=== PATIENT | female | born 1995 | race Caucasian/White ===

== ENCOUNTER 2021-05-26 16:46 | Emergency (ER) | payer MEDICARE, MEDICAID, SELFPAY ==
--- NOTE | 2021-05-26 16:45 | RT.EKG_ITS ---
APPROVED REPORT Exam: Resting ECG Reason for Exam: dizzy Patient Location: E HR:73 bpm ECG Measurements Heart Rate 73 AXIS VA 172 P 52 QRSd 82 QRS 24 QT 383 T 27 QTc 424 Conclusion Sinus rhythm...normal P axis, V-rate 60- 99
[2021-05-26 16:48] VITALS: BP 131/61; PULSE 80; RESP 16; TEMP 36.7; O2SAT 98
[2021-05-26 17:04] VITALS: BP 121/57; PULSE 76; PULSE 89; RESP 19; O2SAT 98
[2021-05-26 17:05] VITALS: PULSE 96; RESP 18; O2SAT 98
[2021-05-26 17:10] VITALS: PULSE 82; RESP 15; O2SAT 100
[2021-05-26 17:20] VITALS: PULSE 85; RESP 18; O2SAT 99
[2021-05-26 17:28] LABS: Abs Immature Grans 0.03 10^3/uL (0.0-0.06); Absolute Basophil Count 0.01 10^3/uL (0.0-0.2); Absolute Lymphocyte Count 3.14 10^3/uL (1.2-3.4); Absolute Neutrophil Count 7.45 10^3/uL (1.2-6.7); Basophils % 0.1; HCT 43.1 % (36.0-46.0); HGB 13.7 g/dL (11.2-15.7); Immature Grans % 0.3; Lymphocytes % 28.1; MCHC 31.8 % (32.0-36.0); MCV 88.1 fL (80-95); MPV 10.7 fL (8.0-11.0); Monocytes % 4.7; Neutrophils % 66.8; Nucleated RBC 0 %; Platelet Count 344 10^3/uL (130-400); RBC 4.89 10^6/uL (3.93-5.22); RDW 12.3 % (11.7-14.6); RDW-SD 39.8 fL; WBC 11.16 10^3/uL (4.4-10.8)
[2021-05-26 17:30] VITALS: PULSE 89; RESP 21; O2SAT 98
[2021-05-26 17:30] LABS: Absolute Monocyte Count 0.52 10^3/uL (0.1-0.8)
[2021-05-26 17:37] LABS: ALT 24 U/L (14-59); AST 9 U/L (15-37); Alkaline Phosphatase 83 U/L (46-116); Anion Gap 8.4 mmol/L (3-11); BUN 11 mg/dL (7-18); Bilirubin, Total 0.3 mg/dL (0.2-1.0); CO2 25.6 mmol/L (21.0-32.0); CREATININE 1.1 mg/dL (0.55-1.02); Calcium 9.1 mg/dL (8.5-10.1); Chloride 106 mmol/L (98-107); Glucose 127 mg/dL (74-106); Lithium 0.3 mmol/l (0.6-1.2); Magnesium 2.1 mg/dL (1.8-2.4); Potassium 3.6 mmol/L (3.5-5.1); Sodium 140 mmol/L (136-145); Total Protein 7.8 g/dL (6.4-8.2); Troponin I < 50 ng/L (<or=60)
--- NOTE | 2021-05-26 17:38 | ED.GENADUL_ITS ---
Discharge Plan Disposition Patient Disposition: HOME Condition: Stable Discharge Details Clinical Impression: Acute vomiting, Dehydration Primary Care Provider: Natasha Deal ED Provider: Terry Ledesma Home Meds and New Rx's Prescriptions: Continued aripiprazole [Abilify] 15 MG tablet 15 mg PO DAILY 0RF olanzapine 10 mg Tablet 10 mg PO PRN PRN0RF lithium carbonate 450 mg Tablet Extended Release 450 mg PO BID 0RF gabapentin 300 mg Tablet 600 mg PO DAILY 0RF Discontinued Pee Pill PO DAILY 0RF Discharge Instructions Instructions: Dehydration (ED) Additional Instructions: Please take your lithium as prescribed. Please drink plenty of fluids to stay hydrated. Please contact your primary care physician to arrange follow-up. Return to the ER immediately for any worsening or new concerning symptoms. Discharge Data Discharge Date/Time-TO BE ENTERED AT DEPARTURE: 05/26/21 19:40 Medical Decision Making 25-year-old female here generally not feeling well for the past week, vomited yesterday, seen by urgent care with concern for lithium toxicity versus dehydration. Patient has had some abnormal suicidal thoughts which she acknowledges are atypical. She has not currently suicidal. Labs reviewed and nondiagnostic. Normal electrolytes. No signs of UTI. [place] level is subtherapeutic at 0.3. EKG was reviewed interpreted by me: Sinus rhythm 73 bpm, nondiagnostic. Patient was given IV fluid bolus and is tolerating oral fluids. Plan will be for discharge with follow-up with you. I encouraged her to take her lithium described. Discharge instructions were discussed with her mother who are in agreement. They were encouraged to return immediately for any worsening or new concerning symptoms. HPI General Mode of arrival: ambulatory . Date/Time Provider Initiated Documentation: 05/26/21 16:49 . Limitations to Documentation: no limitations . Information obtained by: patient . HPI Narrative: 25-year-old female with history of mood disorder, on lithium, presents with chief complaint of generally not feeling well for the past 1 week. Patient notes she has had fatigue and general malaise over the past week. Yesterday she had nausea and vomited 3 times. Symptoms moderate with no modifiers. [facility] and they advised her to go to the emergency department with concern for dehydration and lithium toxicity. Patient knows she has been taking her lithium prescribed. She does state that her mood has been off recently and she has had some atypical thoughts of suicidality. She does not currently suicidal and does feel safe here. Patient was recently treated with fluconazole for vaginal yeast infection about 1 week ago. Symptoms have resolved. Related Data Home Medications Medication Instructions Recorded Confirmed aripiprazole 15 mg tablet (Abilify) 15 mg PO DAILY 10/17/16 10/17/16 gabapentin 300 mg tablet 600 mg PO DAILY 05/26/21 05/26/21 lithium carbonate 450 mg 450 mg PO BID 05/26/21 05/26/21 tablet,extended release olanzapine 10 mg tablet 10 mg PO PRN PRN 05/26/21 05/26/21 Allergies Allergy/AdvReac Type Severity Reaction Status Date / Time risperidone [From Risperdal] Allergy Intermediate Unverified 05/26/21 16:54 haloperidol [From Haldol] AdvReac Unverified 05/26/21 16:54 General Stated Complaint: GenMedical LOY: 3 PFSH All Active Problems (Updated 05/26/21 @ 19:26 by Terry Ledesma MD) Acute vomiting (Acute) Dehydration (Acute) Social History Smoking/Tobacco Use Status: Never Smoking risk assessment performed?: Yes Drug use: Never Substance use type: does not use Do you feel safe at home: Yes Do you feel safe in your relationship?: Yes Exam Const General: cooperative and no acute distress HENMT Head: normocephalic Mouth: mucous membranes dry Eyes Conjunctivae: normal conjunctivae Sclera: normal sclerae EOM: EOM intact bilaterally Neck Neck: trachea midline and supple Resp Auscultation: clear to auscultation bilaterally, no rales, no rhonchi and no wheezes Cardio Rate: regular rate and not tachycardic Rhythm: regular rhythm GI Palpation: soft, not firm, no guarding, no masses, not rigid and nontender Skin General skin exam: no rashes or lesions noted Neuro General: patient alert, patient awake and tone normal Extrem General: no edema Psych Appearance: grossly normal Mental Status: mental status grossly normal Speech and Movement: speech and movement normal Attitude: cooperative Thought Content: suicidality Course Vital Signs Vital signs: Vital Signs Temperature 36.7 C 05/26/21 16:48 Pulse 80 05/26/21 16:48 Respiratory Rate 16 05/26/21 16:48 Blood Pressure 131/61 05/26/21 16:48 Pulse Oximetry 98 05/26/21 16:48 Temperature 36.7 C 05/26/21 16:48 Temperature Source Skin 05/26/21 16:48 Pulse 76 05/26/21 17:04 Pulse 82 05/26/21 17:10 Respiratory Rate 15 05/26/21 17:10 Respiratory Effort Non-Labored 05/26/21 17:01 Respiratory Depth Normal 05/26/21 17:01 Respiratory Pattern Normal 05/26/21 17:01 Blood Pressure 121/57 L 05/26/21 17:04 Blood Pressure Mean 63 05/26/21 17:04 Blood Pressure Position Sitting 05/26/21 16:48 Pulse Oximetry 100 05/26/21 17:10 Oxygen Delivery Method Room Air 05/26/21 16:48 Oxygen Flow Rate 0 05/26/21 16:48 Pain Level 7 05/26/21 16:48 Comment 05/26/21 16:48 Lab/Test Results Lab/Test Results: Laboratory Tests Range/Units 05/26/21 17:15 WBC (4.4-10.8) 10^3/uL 11.16 H RBC (3.93-5.22) 10^6/uL 4.89 Hgb (11.2-15.7) g/dL 13.7 Hct (36.0-46.0) % 43.1 MCV (80-95) fL 88.1 MCH (27.0-33.0) pg 28.0 MCHC (32.0-36.0) % 31.8 L RDW (11.7-14.6) % 12.3 Plt Count (130-400) 10^3/uL 344 MPV (8.0-11.0) fL 10.7 Immature Gran % 0.3 Neutrophils % 66.8 Lymphocytes % 28.1 Monocytes % 4.7 Eosinophils % 0.0 Basophils % 0.1 Nucleated RBC % % 0 Absolute Neutrophils (1.2-6.7) 10^3/uL 7.45 H Absolute Lymphocytes (1.2-3.4) 10^3/uL 3.14 Absolute Monocytes (0.1-0.8) 10^3/uL 0.52 Absolute Eosinophils (0.0-0.7) 10^3/uL 0.00 Absolute Basophils (0.0-0.2) 10^3/uL 0.01
[2021-05-26 18:09] LABS: Bilirubin Negative (Negative); Blood Negative (Negative); Clarity Clear (Clear); Glucose Negative (Negative); Ketones Negative (Negative); Leukocyte Esterase Small (Negative); Nitrite Negative (Negative); Specific Gravity 1.015 (1.005-1.025); Urobilinogen 0.2 EU/dL (Up TO 0.2)
[2021-05-26 18:21] LABS: TSH (W/Ref FT4) 1.22 uIU/mL (0.36-3.74)
[2021-05-26 18:37] LABS: Bacteria Negative HPF (Negative); C & S Indicated? No; Casts Negative LPF (Negative); Crystals Many Amorphous HPF (Negative); Epithelial Cells Many HPF (Negative); Mucus Negative (Negative); Other Cells Negative (Negative); RBC Negative HPF (0-2); WBC Negative HPF (0-5)
== END 2021-05-26 19:40 | disposition home or self-care (01) ==
PROVIDERS: Emergency Provider Student in an Organized Health Care Education/Training Program; PCP Naturopath
DX: R11.10 Vomiting, unspecified (principal); E86.0 Dehydration; R42 Dizziness and giddiness; Z79.899 Other long term (current) drug therapy
CPT/HCPCS: 80053; 81025; 93005; 99283; 80178; 81003; 81015; 83735; 84443; 84484; 85025; 93010

== ENCOUNTER 2021-08-15 21:15 | Emergency (ER) | payer MEDICARE, MEDICAID, SELFPAY ==
[2021-08-15 21:25] VITALS: BP 130/72; PULSE 96; RESP 18; TEMP 36.6; O2SAT 97
--- NOTE | 2021-08-15 21:36 | ED.GENADUL_ITS ---
Discharge Plan Disposition Patient Disposition: HOME Condition: Stable Discharge Details Clinical Impression: Bacterial vaginosis Primary Care Provider: Natasha Deal ED Provider: Raymond Lane Home Meds and New Rx's Prescriptions: New metronidazole 0.75 % gel 1 appful vaginal DAILY 5 Days Qty: 70 0RF Continued aripiprazole [Abilify] 15 MG tablet 15 mg PO DAILY olanzapine 10 mg Tablet 5 mg PO PRN PRN lithium carbonate 450 mg Tablet Extended Release 450 mg PO BID gabapentin 300 mg Tablet 600 mg PO DAILY zolpidem [Ambien] 5 mg Tablet 5 mg PO QHS PRN Discharge Instructions Instructions: Bacterial Vaginosis (ED) Additional Instructions: MetroGel as directed. Your urinalysis was unremarkable this evening. Please watch for new or worsening symptoms and return to the ER for any concerns. Otherwise please follow-up with your [facility] on the as already scheduled, you may call them tomorrow to see if they can see you sooner. Medical Decision Making 26-year-old female, not sexually active, no history of STI, presenting to the ER concerned that her BV has not completely resolved. She states that she was seen by her [facility]PECT[facility] roughly 10 days ago, had a full pelvic exam completed with cultures, and diagnosed with BV. Finished the treatment but reports the symptoms really never improved. She went to an urgent care yesterday, was prescribed medication for BV but there was a mixup at the pharmacy and she was unable to get her medication. Patient denies any fever, abdominal pain, nausea, vomiting, vaginal bleeding. She is not sexually active and denies any risk of STI. Patient states that she is scheduled to see her [facility] team in 1 week from today. Plan is to obtain urinalysis. We discussed an internal vaginal speculum examination with cultures patient declines. Given she is not sexually active and she recently just had a pelvic examination with cultures, I do bel ieve this to be reasonable. Urinalysis unremarkable Discussed benign urinalysis with patient. We discussed once again moving her to a different exam room with M[employer] stretcher performing a pelvic exam but she declines. She would like to be presumptively treated for BV. States that MetroGel vaginally has worked well in the past and this is what she would like now. I will provide her a prescription. We discussed the importance of outpatient [facility] [facility] [facility] follow-up. Standard discharge and return precautions were provided. Patient understands, is agreeable to this plan, and has no additional questions or concerns upon discharge. This documentation was generated using [employer] dictation system, please disregard any oddities of phrase or misspellings. HPI General Mode of arrival: ambulatory . Date/Time Provider Initiated Documentation: 08/15/21 21:15 . Limitations to Documentation: no limitations . Information obtained by: patient and family . History of Present Illness 26 year old F presents to the emergency department with the chief complaint of dysuria,vaginal itching, described as mild, with intensity rated at 2. and is localized to the genitals. Patient reports no radiation. Patient started experiencing this week(s) (1.5) and it has been constant. No relieving factors improve symptom(s), No exacerbating factors reported . Patient notes no other symptoms.. Patient did receive the following treatments prior to arrival, none Related Data Home Medications Medication Instructions Recorded Confirmed aripiprazole 15 mg tablet (Abilify) 15 mg PO DAILY 10/17/16 10/17/16 gabapentin 300 mg tablet 600 mg PO DAILY 05/26/21 08/15/21 lithium carbonate 450 mg 450 mg PO BID 05/26/21 08/15/21 tablet,extended release olanzapine 10 mg tablet 5 mg PO PRN PRN 05/26/21 08/15/21 metronidazole 0.75 % vaginal gel 1 appful vaginal DAILY 5 days #70 08/15/21 grams zolpidem 5 mg tablet (Ambien) 5 mg PO QHS PRN 08/15/21 08/15/21 Previous Rx's Medication Instructions Recorded metronidazole 0.75 % vaginal gel 1 appful vaginal DAILY 5 days #70 08/15/21 grams Allergies Allergy/AdvReac Type Severity Reaction Status Date / Time risperidone [From Risperdal] Allergy Intermediate Other (See Unverified 08/15/21 21:30 Comment) haloperidol [From Haldol] AdvReac Intermediate Other (See Unverified 08/15/21 21:30 Comment) quetiapine [From Seroquel] AdvReac Intermediate Other (See Unverified 08/15/21 21:30 Comment) General Stated Complaint: Urinary LOY: 4 Review of Systems Constitutional Constitutional: Denies fever(s) Gastrointestinal Gastrointestinal: Denies abdominal pain, Denies nausea and Denies vomiting Genitourinary Genitourinary: Denies abnormal vaginal bleeding, Denies hematuria, Reports dysuria and Reports vaginal discharge (scant, clear/white) Musculoskeletal Musculoskeletal: Denies back pain Integumentary/Breasts Skin/Breast: Denies rash PFSH All Active Problems Bacterial vaginosis (Acute) Social History Smoking/Tobacco Use Status: Current-Occasional Tobacco Type: cigarettes Smoking risk assessment performed?: Yes Alcohol Intake: current Alcohol Intake frequency: a few times a week Alcohol type: beer, wine and hard liquor Drug use: Never Substance use type: does not use Details: Smokes occassionally currently; previously smoke about a pack over a week or two. Do you feel safe at home: Yes Do you feel safe in your relationship?: Yes Exam Const General: cooperative, healthy appearing, comfortable and no acute distress Orientation: alert and awake [facility] Head: normal to inspection, normocephalic and atraumatic Eyes Conjunctivae: conjunctivae normal Neck Neck: normal visual inspection, full ROM, trachea midline and supple Resp Effort & Inspection: normal respiratory effort and able to speak in complete sentences Auscultation: clear to auscultation bilaterally Cardio Rate: regular rate Rhythm: regular rhythm GI Inspection: obesity Palpation: soft, not firm, no guarding, no pulsatile masses and nontender General: deferred (Patient declined) Back/Spine/Pelvis Back: no CVA tenderness and No back tenderness Skin General skin exam: no rashes or lesions noted Neuro General: patient alert, patient awake, moves all extremities and no focal motor deficits Sensory Exam: no sensory deficits noted Psych Appearance: grossly normal Mental Status: mental status grossly normal Course Vital Signs Vital signs: Vital Signs Temperature 36.6 C 08/15/21 21:25 Pulse 96 H 08/15/21 21:25 Respiratory Rate 18 08/15/21 21:25 Blood Pressure 130/72 08/15/21 21:25 Pulse Oximetry 97 08/15/21 21:25 Temperature 36.6 C 08/15/21 21:25 Temperature Source Oral 08/15/21 21:25 Pulse 96 H 08/15/21 21:25 Respiratory Rate 18 08/15/21 21:25 Respiratory Effort Non-Labored 08/15/21 21:32 Blood Pressure 130/72 08/15/21 21:25 Blood Pressure Position Sitting 08/15/21 21:25 Pulse Oximetry 97 08/15/21 21:25 Oxygen Delivery Method Room Air 08/15/21 21:25 Oxygen Flow Rate 0 08/15/21 21:25 Pain Level 8 08/15/21 21:32 PAWSS Have you Been Recently Intoxicated or Drunk Within the Last 30 days?: No Have you Ever Experienced Previous Episodes of Alcohol Withdrawal?: No Have you ever Experienced Withdrawal Seizures?: No Have you ever Experienced Delirium Tremens(DT)s?: No Have you ever undergone Alcohol Rehabilitation Treatment (i.e, inpt ot outpatient treatment programs)?: No Have you ever Experienced Blackouts?: No Have you ever Combined Alcohol with other Downers within the last 90 days?: No Have you ever Combined Alcohol with any other Substance of Abuse during the last 90 days?: No Positive Blood Alcohol level on Presentation? [PCS.BAL]: No Evidence of Increased Autonomic Activity (i.e. HR>120, tremor, sweating, agitation, nausea)?: No Result: 0
[2021-08-15 21:44] LABS: Bilirubin Negative (Negative); Blood Negative (Negative); Clarity Clear (Clear); Glucose Negative (Negative); Ketones Negative (Negative); Leukocyte Esterase Negative (Negative); Nitrite Negative (Negative); Specific Gravity 1.015 (1.005-1.025); Urobilinogen 0.2 EU/dL (Up TO 0.2)
[2021-08-15 22:48] VITALS: BP 130/72; PULSE 96; RESP 18; TEMP 36.6; O2SAT 97
== END 2021-08-15 22:48 | disposition home or self-care (01) ==
PROVIDERS: Emergency Provider Physician Assistant; PCP Naturopath
DX: N76.0 Acute vaginitis (principal)
CPT/HCPCS: 81025; 99283; 81003

== ENCOUNTER 2022-08-27 14:58 | Outpatient (CLI) | payer MEDICARE, MEDICAID, SELFPAY ==
[2022-08-27 15:16] LABS: Basophils % 0.1; HCT 39.6 % (36.0-46.0); HGB 13.3 g/dL (11.2-15.7); Lymphocytes % 25.3; MCH 28.5 pg (27.0-33.0); MCHC 33.6 % (32.0-36.0); MCV 85 fL (80-95); Monocytes % 5.6; Neutrophils % 68.7; Platelet Count 302 10^3/uL (130-400); RBC 4.66 10^6/uL (3.93-5.22); RDW 12.2 % (11.7-14.6); RDW-SD 37.5 fL; WBC 10.29 10^3/uL (4.4-10.8)
[2022-08-27 15:17] LABS: Abs Immature Grans 0.03 10^3/uL (0.0-0.06); Absolute Basophil Count 0.01 10^3/uL (0.0-0.2); Absolute Monocyte Count 0.58 10^3/uL (0.1-0.8); Absolute Neutrophil Count 7.07 10^3/uL (1.2-6.7); Immature Grans % 0.3
[2022-08-27 16:21] LABS: Lithium 0.4 mmol/l (0.6-1.2)
== END 2022-08-27 14:59 | disposition home or self-care (01) ==
LOC: LBO 14:59
PROVIDERS: PCP Naturopath; Visit Provider Psychiatry & Neurology Psychiatry
DX: F20.9 Schizophrenia, unspecified (principal); Z79.899 Other long term (current) drug therapy
CPT/HCPCS: 36415; 80178; 85025

== ENCOUNTER 2022-11-24 20:25 | Emergency (ER) | payer MEDICARE, MEDICAID, SELFPAY ==
[2022-11-24 20:30] VITALS: BP 140/95; PULSE 99; RESP 20; TEMP 36.8; O2SAT 99
--- NOTE | 2022-11-24 20:30 | DI.RAD_ITS ---
Exam(s) XR ANKLE RT COMPLETE EXAM: XR ANKLE RT COMPLETE CLINICAL HISTORY: trauma, lateral malleolus. TECHNIQUE: 2D digital imaging was performed of the right ankle. Three images were obtained. AP, la teral and oblique views were obtained. COMPARISON: No exams were available for comparison FINDINGS: BONES: No acute fracture is present. No bony destructive lesion is seen. There is a small spur at th e medial malleolus. JOINTS: The ankle mortise is normally aligned. SOFT TISSUE: Normal. IMPRESSION: No acute fracture or dislocation. If symptoms persist a follow-up examination in 7-10 days may be ob tained. DATA REPOSITORY: RADIATION DOSE DELIVERED:
--- NOTE | 2022-11-24 22:09 | DI.VRAD_ITS ---
PROCEDURE INFORMATION: Exam: XR Right Ankle Exam date and time: 11/24/2022 9:30 PM Age: 27 years old Clinical indication: Pain; Ankle; Right TECHNIQUE: Imaging protocol: Radiologic exam of the right ankle. Views: 3 or more views. COMPARISON: No relevant prior studies available. FINDINGS: Bones/joints: Series 2, image 1 demonstrates a spur like density arising from the medial malleolus. This could represent a bony spur but should be correlated with any concern for avulsion injury. No additional areas concerning for fracture/injury are identified. Soft tissues: No unusual soft tissue calcifications. IMPRESSION: 1.Series 2, image 1 demonstrates a spur like density arising from the medial malleolus. This could represent a bony spur but should be correlated with any concern for avulsion injury. Correlation with point tenderness suggested. 2. Other findings/details as above. If symptoms persist or remain concerning, consider follow-up imaging in 7 days or alternative imaging modalities. Dictated and Authenticated by: Judith Davalos MD. Ordering:CAROLINA Madden MD
[2022-11-24 22:48] VITALS: BP 131/65; PULSE 85; RESP 18; O2SAT 97
--- NOTE | 2022-11-24 22:55 | ED.GENADUL_ITS ---
Discharge Plan Disposition Patient Disposition: Home Condition: Stable Discharge Details Clinical Impression: Ankle fracture, right Primary Care Provider: Roxi Estrella ED Provider: Maryanne Rene Home Meds and New Rx's Prescriptions: New ibuprofen 600 mg tablet 600 mg PO QID Qty: 30 0RF Continued aripiprazole [Abilify] 15 MG tablet 15 mg PO DAILY olanzapine 10 mg Tablet 5 mg PO PRN PRN lithium carbonate 450 mg Tablet Extended Release 450 mg PO BID gabapentin 300 mg Tablet 600 mg PO DAILY zolpidem [Ambien] 5 mg Tablet 5 mg PO QHS PRN Discharge Instructions Instructions: Ankle Fracture (DC), Crutch Instructions (ED) Additional Instructions: Ice to affected area for the next 2 days then can use heat or ice Elevation is much as possible to help reduce swelling Use crutches for non-weightbearing Wear splint as directed until you are evaluated by orthopedics Referrals: [facility] [Primary Care Provider] - (Follow-up with your local orthopedist within the next 5 to 7 days return sooner for new or worsening symptoms) Discharge Data Discharge Date/Time-TO BE ENTERED AT DEPARTURE: 11/24/22 23:29 Medical Decision Making Patient presents with lateral malleolus pain following a roll to the ankle. Suspect ankle sprain but will obtain imaging to rule out acute fracture. Ice provided. xray results review and patient is reporting some pain medial but maximal pain remains lateral. walking boot and crutches provided. non weight bearing until orthopedic follow up which she will arrange locally for her. Medical Records Medical records reviewed: Yes I reviewed the patient's medical records. Imaging Data Radiologic Study: Imaging: X-Ray Radiologist's impression: Exam(s) PROCEDURE INFORMATION: Exam: XR Right Ankle Exam date and time: 11/24/2022 9:30 PM Age: 27 years old Clinical indication: Pain; Ankle; Right TECHNIQUE: Imaging protocol: Radiologic exam of the right ankle. Views: 3 or more views. COMPARISON: No relevant prior studies available. FINDINGS: Bones/joints:? Series 2, image 1 demonstrates a spur like density arising from the medial malleolus.? This could represent a bony spur but should be correlated with any concern for avulsion injury.? No additional areas concerning for fracture/injury are identified. Soft tissues:? No unusual soft tissue calcifications. IMPRESSION: 1.Series 2, image 1 demonstrates a spur like density arising from the medial malleolus.? This could represent a bony spur but should be correlated with any concern for avulsion injury.? Correlation with point tenderness suggested. 2. Other findings/details as above.? If symptoms persist or remain concerning, consider follow-up imaging in 7 days or alternative imaging modalities.? Dictated and Authenticated by: Judith Davalos MD. HPI General Mode of arrival: ambulatory . Date/Time Provider Initiated Documentation: 11/24/22 20:31 . Limitations to Documentation: no limitations . Information obtained by: patient . HPI Narrative: Is a 27-year-old female patient who was in her usual state of health who sustained a mechanical injury to her right ankle where she rolled it after trying to go through a doorway. She states she rolled it twice during the same incident. She did not fall over she has been ambulating. She has pain swelling and ecchymosis over the lateral aspect of right foot distal to her malleolus. She has no tenderness over her fifth or fourth metatarsal. She does report some mild tenderness over the lateral malleolus, no tenderness over medial. there is no obvious deformity. There was no other injury. Related Data Home Medications Medication Instructions Recorded Confirmed aripiprazole 15 mg tablet (Abilify) 15 mg PO DAILY 10/17/16 10/17/16 gabapentin 300 mg tablet 600 mg PO DAILY 05/26/21 08/15/21 lithium carbonate 450 mg 450 mg PO BID 05/26/21 08/15/21 tablet,extended release olanzapine 10 mg tablet 5 mg PO PRN PRN 05/26/21 08/15/21 zolpidem 5 mg tablet (Ambien) 5 mg PO QHS PRN 08/15/21 08/15/21 ibuprofen 600 mg tablet 600 mg PO QID #30 tabs 11/24/22 Previous Rx's Medication Instructions Recorded ibuprofen 600 mg tablet 600 mg PO QID #30 tabs 11/24/22 Allergies Allergy/AdvReac Type Severity Reaction Status Date / Time risperidone [From Risperdal] Allergy Intermediate Other (See Unverified 08/15/21 21:30 Comment) haloperidol [From Haldol] AdvReac Intermediate Other (See Unverified 08/15/21 21:30 Comment) quetiapine [From Seroquel] AdvReac Intermediate Other (See Unverified 08/15/21 21:30 Comment) General Stated Complaint: Orthopedic LOY: 4 Review of Systems All systems reviewed & are unremarkable except as noted in HPI and below PFSH All Active Problems (Updated 11/24/22 @ 23:01 by Maryanne Rene NP) Ankle fracture, right (Acute) Social History Smoking/Tobacco Use Status: Current-Occasional Tobacco Type: cigarettes Smoking risk assessment performed?: Yes Alcohol Intake: current Alcohol Intake frequency: a few times a week Alcohol type: beer, wine and hard liquor Drug use: Never Substance use type: does not use Details: Smokes occassionally currently; previously smoke about a pack over a week or two. Do you feel safe at home: Yes Do you feel safe in your relationship?: Yes Exam Const General: cooperative, healthy appearing and comfortable Orientation: alert, awake and oriented x3 HENMT Head: normal to inspection, normocephalic and atraumatic Face and sinus: normal facial exam Mouth: oral mucosae normal Eyes General: appearance normal, both eyes and all related structures Cardio Rate: regular rate Rhythm: regular rhythm and other (Strong pedal pulse good sensation and movement to toes distally good cap re) Skin General skin exam: ecchymosis (Just under lateral malleolus) Extrem Right lower extremity: ankle Details: swelling Details: laterally and ecchymosis Course Vital Signs Vital signs: Vital Signs Temperature 36.8 C 11/24/22 20:30 Pulse 99 H 11/24/22 20:30 Respiratory Rate 20 11/24/22 20:30 Blood Pressure 140/95 H 11/24/22 20:30 Pulse Oximetry 99 11/24/22 20:30 Temperature 36.8 C 11/24/22 20:30 Pulse 85 11/24/22 22:48 Respiratory Rate 18 11/24/22 22:48 Respiratory Effort Normal 11/24/22 20:42 Blood Pressure 131/65 11/24/22 22:48 Blood Pressure Position Sitting 11/24/22 20:30 Pulse Oximetry 97 11/24/22 22:48 Oxygen Delivery Method Room Air 11/24/22 22:48 Oxygen Flow Rate 0 11/24/22 22:48 Pain Level 10 11/24/22 20:30
--- NOTE | 2022-11-26 11:20 | NUR.NOTE ---
Addendum entered by Brigitte Denson 11/26/22 11:21: Patient was notified of this. Original Note: Per patient was asked to fax referral to [facility] for her ankle fx. The provider note and xray report were faxed to this facility. p [phone] F [phone] Nursing Note:
== END 2022-11-24 23:29 | disposition home or self-care (01) ==
PROVIDERS: Emergency Provider Nurse Practitioner Acute Care
DX: S82.891A Other fracture of right lower leg, initial encounter for closed fracture (principal); X50.1XXA Overexertion from prolonged static or awkward postures, initial encounter; F17.210 Nicotine dependence, cigarettes, uncomplicated
CPT/HCPCS: 29515; 99283; 73610

== ENCOUNTER 2022-12-21 20:00 | Outpatient (REF) | payer MEDICARE, MEDICAID, SELFPAY ==
[2022-12-21 21:46] LABS: Bacteria Rare HPF (Negative); C & S Indicated? C&S Done As Ordered; Crystals Few Calcium Oxalate HPF (Negative); Epithelial Cells Moderate HPF (Negative); Mucus Negative (Negative); WBC 20-50 HPF (0-5)
== END 2022-12-21 20:01 | disposition home or self-care (01) ==
LOC: LBN 20:00
PROVIDERS: Visit Provider Physician Assistant Medical
DX: L29.8 Other pruritus (principal); R82.89 Other abnormal findings on cytological and histological examination of urine
CPT/HCPCS: 81015; 87086; 87480; 87510; 87660

== ENCOUNTER 2022-12-28 19:18 | Outpatient (REF) | payer MEDICARE, MEDICAID, SELFPAY ==
[2022-12-28 21:28] LABS: Epithelial Cells Few HPF (Negative); WBC >50 HPF (0-5)
[2022-12-28 21:29] LABS: Bacteria Few HPF (Negative); C & S Indicated? C&S Done As Ordered; Casts Negative LPF (Negative); Crystals Negative HPF (Negative); Mucus Trace (Negative)
== END 2022-12-28 19:19 | disposition home or self-care (01) ==
LOC: LBN 19:18
PROVIDERS: Visit Provider Physician Assistant Medical
DX: R30.0 Dysuria (principal); R82.89 Other abnormal findings on cytological and histological examination of urine
CPT/HCPCS: 81015; 87086; 87480; 87510; 87660

== ENCOUNTER 2024-05-04 10:29 | Emergency (ER) | payer MEDICARE, MEDICAID, SELFPAY ==
[2024-05-04] VITALS (13 sets, daily range): BP systolic 141–175; BP diastolic 82–101; PULSE 92–127; RESP 18–20; TEMP 36.5–37.1; O2SAT 96–99
--- NOTE | 2024-05-04 10:45 | DI.CT_ITS ---
Exam(s) CT ABDOMEN PELVIS W EXAM: CT ABDOMEN PELVIS W CLINICAL HISTORY: Diffuse abd pain, recurrent UTI. TECHNIQUE: Imaging Protocol: Axial computed tomography images with coronal and sagittal reformatted images were created and reviewed CONTRAST MATERIAL: Intravenous: Omnipaque-350 100cc Oral: None COMPARISON: No exams were available for comparison FINDINGS: VISUALIZED LUNG BASES: No nodules nor pleural effusions evident. ABDOMEN: There is no ascites. LIVER: Liver is somewhat hypodense implying an element of steatosis. Are, however, no discrete focal hepatic lesions evident. No dilated intrahepatic ducts. GALLBLADDER/BILIARY: No obvious gallbladder pathology. CBD is not dilated. PANCREAS: No evidence of pancreatic mass nor dilatation of the pancreatic duct. SPLEEN: Spleen is not enlarged. No obvious intrasplenic lesions. Splenic and portal veins are paten t. ADRENALS: There is a nodule in the left adrenal gland which measures 1.6 x 1.4 cm.. There are no nod ules in the right adrenal gland. KIDNEYS:No cysts evident. No solid renal masses. No calculi nor hydronephrosis.. ABDOMINAL AORTA: Abdominal aorta is not enlarged. LYMPH NODES:There is no retroperitoneal nor paraaortic adenopathy. ABDOMINAL WALL: No evidence of significant anterior abdominal wall nor inguinal hernia. GI: As abundant fecal material right-side of the colon. We the left side of the colon is collapsed. However, there is abundant fecal material evident in the sigmoid and within the rectosigmoid. No ev idence of significant diverticular disease. PELVIS: GI: No evidence of appendicitis.No evidence of sigmoid diverticulitis. LYMPH NODES: There is no intrapelvic nor inguinal adenopathy. REPRODUCTIVE: Uterus and adnexal regions appear unremarkable and there is no free fluid in the pelvis . URINARY BLADDER: Urinary bladder wall appears mildly uniformly thickened although this may be related to under distension. There are no radiopaque calculi evident within the urinary bladder lumen OSSEOUS: No fractures and no significant osseous lesions. IMPRESSION: 1. There is a 16 x 14 mm abnormal nodule in left adrenal gland. If clinically indicated follow-up MR I with chemical shift imaging sequences can be performed for added specificity (to determine if this is a benign adenoma or other pathology). There are no focal findings in the opposite-right adrenal g land. 2. Moderate hepatic steatosis. Liver size upper normal. No hepatic lesions. No splenomegaly. No a scites. 3. Abundant fecal material noted in the rectosigmoid as well as in the right-side of the colon. Ther e is no evidence of significant diverticular disease in the colon. Also no evidence of appendicitis. Report called by myself to ER physician 05/04/2024 at 12:18 p.m. RADIATION DOSE DELIVERED: 1,027mGy.cm Total DLP DATA REPOSITORY: All CT scans at this facility are submitted to the National Radiology Data Registry (NRDR) Dose Index Registry (DIR) with the [employer] ([employer]). RADIATION OPTIMIZATION: All CT scans at this facility use at least one of these dose optimization te chniques: automated exposure control; mA and/or kV adjustment per patient size (includes targeted exa ms where dose is matched to clinical indication); or iterative reconstruction.
--- NOTE | 2024-05-04 10:54 | W.ED.GENAD ---
Discharge Plan Disposition Patient Disposition: Home Condition: Stable Discharge Details Clinical Impression: Urinary tract infection due to Pseudomonas aeruginosa Primary Care Provider: Oni Minaya ED Provider: Laney Xiong Home Meds and New Rx's Prescriptions: New ciprofloxacin HCl 750 mg tablet 750 mg PO BID 10 Days Qty: 20 0RF No Action ibuprofen 600 mg tablet 600 mg PO QID Qty: 30 0RF aripiprazole [Abilify] 15 MG tablet 15 mg PO DAILY olanzapine 10 mg Tablet 5 mg PO PRN PRN lithium carbonate 450 mg Tablet Extended Release 450 mg PO BID gabapentin 300 mg Tablet 600 mg PO DAILY zolpidem [Ambien] 5 mg Tablet 5 mg PO QHS PRN Discharge Instructions Instructions: Urinary Tract Infection, Adult ED Additional Instructions: You were seen in the emergency department today for evaluation of dysuria and a positive urine culture, and in our department had a full physical examination performed, reassuring laboratory studies, and a negative CT. I did discuss your case with the infectious disease doctors at [facility], who recommends starting Cipro, 750 mg twice daily. You will take this medication for the next 10 days, and to take all of it until it is gone even if you start to feel better. While taking this medication I want you to hold your Zofran, as this can interact with the antibiotic. Please follow-up with your primary care provider in the next few days to discuss this visit and any symptoms that change, worsen, or persist. Thank you for allowing us to be part of your care. HPI General Mode of arrival: ambulatory. Date/Time Provider Initiated Documentation: 05/04/24 10:30. Limitations to Documentation: no limitations. Information obtained by: patient, family and old records reviewed. HPI Narrative: HPI: This is a 28-year-old female patient with a history of schizoaffective disorder, frequent UTIs, sent in by her primary care provider for a UTI not improving on outpatient therapies. The patient was seen at an [facility] about a week ago, was diagnosed with a UTI and started on Macrobid. She also had a negative vaginitis/vaginosis panel at that time after endorsing a fishy odor. The patient was called for her first urine culture, which was positive for Pseudomonas, and she was transitioned to oral cefpodoxime. She states that she took that medication until last night. She was contacted today and informed that she should present to the emergency department as her urine culture also grew ochrobactirium, which was resistant to the ciprofloxacin that they anticipated putting her on for her pseudomonal infection. The patient reports that she is experiencing ongoing dysuria, generalized abdominal tenderness, and feels weak and lightheaded. She has been drinking lots of fluids, her provider had put her on the brat diet for some GI distress, states that she has been adding in ensures for nutritional support. The patient states that her nausea has improved since her initial diagnosis. She has not measured fevers. Exam: Gen: Awake and alert, in no apparent distress HEENT: Non-icteric sclera Neck: Supple Lungs: No apparent respiratory distress, normal respiratory effort. CV: Appears well perfused, heart with tachycardic rate but regular rhythm, strong distal pulses Abdomen: Non-distended, soft, generalized tenderness to palpation throughout without rigidity, rebound, or guarding MSK: Moves 4 extremities without apparent limitation in ROM Skin: Visualized skin without rashes, cyanosis. Neuro: Normal Gait, no obvious focal deficits or facial asymmetry. Speaks in full, clear sentences. Psych: Appropriate for situation. MDM: This is a 28-year-old female patient presenting for evaluation for urinary tract infection with urine cultures positive for Pseudomonas and ochrobactrium. Differential includes but is not limited to UTI, pyelonephritis, certainly considered perinephric abscess, obstructive stones. The patient generalized abdominal tenderness also may be suggestive of other intra-abdominal pathology such as gastroenteritis, appendicitis, cholecystitis, pancreatitis, diverticulitis. I considered sepsis and bacteremia in this tachycardic patient, especially given the delay in given culture appropriate antibiotics. We will repeat the urinalysis, obtain labs to include CBC, CMP, magnesium, lipase, and will obtain a CT abdomen pelvis with contrast. We will obtain blood cultures. ED Course: I independently interpreted the laboratory studies, which show no significant leukocytosis, anemia, or thrombocytopenia. The chemistry panel is without evidence of electrolyte abnormality, kidney dysfunction, or liver injury. Lipase is low, urinalysis with proteinuria but no other infectious findings, I did not send for culture given the patient's active culture data, and certainly considered chronic colonization, though in this case the patient is endorsing ongoing symptoms and warrants treatment. CT scan reviewed by myself, redemonstrates the adrenal nodule which the patient had been made aware on her prior CTs, no obstructive uropathy or renal stones. The patient's tachycardia resolved, and I consulted Dr. Rene with the [facility] infectious disease team, who recommends ciprofloxacin, 750 mg twice daily for 10 days. I provided the patient with her first dose here, and at this time, the patient has had a full medical evaluation and is safe for discharge to home. They are hemodynamically stable, ambulatory, and tolerating PO. They are understanding of the follow-up plan and return precautions. They left our facility without incident. Laney Xiong MD Related Data Home Medications ?Medication ?Instructions ?Recorded ?Confirmed aripiprazole 15 mg tablet (Abilify) 15 mg PO DAILY 10/17/16 05/04/24 gabapentin 300 mg tablet 600 mg PO DAILY 05/26/21 05/04/24 lithium carbonate 450 mg 450 mg PO BID 05/26/21 05/04/24 tablet,extended release olanzapine 10 mg tablet 5 mg PO PRN PRN 05/26/21 05/04/24 zolpidem 5 mg tablet (Ambien) 5 mg PO QHS PRN 08/15/21 05/04/24 ibuprofen 600 mg tablet 600 mg PO QID #30 tabs 11/24/22 05/04/24 ciprofloxacin HCl 750 mg tablet 750 mg PO BID 10 days #20 tabs 05/04/24 Previous Rx's ?Medication ?Instructions ?Recorded ibuprofen 600 mg tablet 600 mg PO QID #30 tabs 11/24/22 ciprofloxacin HCl 750 mg tablet 750 mg PO BID 10 days #20 tabs 05/04/24 Allergies Allergy/AdvReac Type Severity Reaction Status Date / Time risperidone (From Risperdal) Allergy Intermediate Other (See Unverified 05/04/24 10:39 Comment) haloperidol (From Haldol) AdvReac Intermediate Other (See Unverified 05/04/24 10:39 Comment) quetiapine (From Seroquel) AdvReac Intermediate Other (See Unverified 05/04/24 10:39 Comment) General Stated Complaint: Urinary LOY: 3 Course Vital Signs Vital signs: Vital Signs Temperature 37.1 C 05/04/24 10:32 Pulse 127 H 05/04/24 10:32 Respiratory Rate 20 05/04/24 10:32 Blood Pressure 175/101 H 05/04/24 10:32 Pulse Oximetry 98 05/04/24 10:32 Temperature 37.1 C 05/04/24 10:38 Pulse 127 H 05/04/24 10:38 Respiratory Rate 20 05/04/24 10:38 Blood Pressure 175/101 H 05/04/24 10:38 Blood Pressure Position Sitting 05/04/24 10:38 Pulse Oximetry 98 05/04/24 10:38 Oxygen Delivery Method Room Air 05/04/24 10:38 Oxygen Flow Rate 0 05/04/24 10:38 Lab/Test Results Lab/Test Results: 05/04/24 10:45 Blood Blood Culture - Pending 05/04/24 10:45 Blood Blood Culture - Pending Medical Decision Making Quality:SDOH Health Related Social Needs: No Data to Display PFSH All Active Problems (Updated 05/04/24 @ 12:46 by Laney Xiong MD) Urinary tract infection due to Pseudomonas aeruginosa (Acute) Social History Smoking/Tobacco Use Status: Former Tobacco Use Smoking risk assessment performed?: Yes Alcohol Intake: current Alcohol Intake frequency: holidays/special occasions only Alcohol type: beer, wine and hard liquor Drug use: Never Substance use type: does not use and former substance user Do you feel safe at home: Yes Do you feel safe in your relationship?: Yes PAWSS Have you Been Recently Intoxicated or Drunk Within the Last 30 days?: No Have you Ever Experienced Previous Episodes of Alcohol Withdrawal?: No Have you ever Experienced Withdrawal Seizures?: No Have you ever Experienced Delirium Tremens(DT)s?: No Have you ever undergone Alcohol Rehabilitation Treatment (i.e, inpt ot outpatient treatment programs)?: No Have you ever Experienced Blackouts?: No Have you ever Combined Alcohol with other Downers within the last 90 days?: No Have you ever Combined Alcohol with any other Substance of Abuse during the last 90 days?: No Positive Blood Alcohol level on Presentation? [PCS.BAL]: No Evidence of Increased Autonomic Activity (i.e. HR>120, tremor, sweating, agitation, nausea)?: No Result: 0
[2024-05-04 11:13] LABS: Abs Immature Grans 0.04 10^3/uL (0.0-0.06); Absolute Basophil Count 0.01 10^3/uL (0.0-0.2); Absolute Lymphocyte Count 1.94 10^3/uL (1.2-3.4); Absolute Monocyte Count 0.38 10^3/uL (0.1-0.8); Absolute Neutrophil Count 6.75 10^3/uL (1.2-6.7); Basophils % 0.1 %; HCT 43.6 % (36.0-46.0); HGB 13.9 g/dL (11.2-15.7); Immature Grans % 0.4 %; Lymphocytes % 21.3 %; MCH 27.6 pg (27.0-33.0); MCHC 31.9 % (32.0-36.0); MCV 87 fL (80-95); MPV 11.1 fL (8.0-11.0); Monocytes % 4.2 %; Platelet Count 309 10^3/uL (130-400); RBC 5.04 10^6/uL (3.93-5.22); RDW 12.9 % (11.7-14.6); RDW-SD 40.4 fL; WBC 9.12 10^3/uL (4.4-10.8)
[2024-05-04 11:18] LABS: Bilirubin Negative (Negative); Blood Negative (Negative); Clarity Sl Cloudy (Clear); Glucose Negative (Negative); Ketones Negative (Negative); Leukocyte Esterase Negative (Negative); Nitrite Negative (Negative); Urobilinogen 0.2 mg/dL (Up to 0.2); pH 7.5 (5-8)
[2024-05-04 11:25] LABS: Bacteria Moderate HPF (Negative); C & S Indicated? No; Casts Negative LPF (Negative); Crystals Negative HPF (Negative); Epithelial Cells Moderate HPF (Negative); Mucus Negative (Negative); RBC 0-2 HPF (0-2); WBC 0-2 HPF (0-5)
[2024-05-04 11:29] LABS: ALT 41 U/L (14-59); AST 18 U/L (15-37); Albumin 4.1 g/dL (3.4-5.0); Alkaline Phosphatase 103 U/L (46-116); Anion Gap 10.8 mmol/L (3-11); BUN 6 mg/dL (7-18); Bilirubin, Total 0.39 mg/dL (0.2-1.0); CO2 25.2 mmol/L (21.0-32.0); CREATININE 1.1 mg/dL (0.55-1.02); Calcium 9.6 mg/dL (8.5-10.1); Chloride 106 mmol/L (98-107); Estimated GFR 71.07 (mL/min/1.73m2); Glucose 175 mg/dL (74-106); Lipase 55 U/L (<78); Magnesium 2.1 mg/dL (1.8-2.4); Potassium 3.7 mmol/L (3.5-5.1); Sodium 142 mmol/L (136-145); Total Protein 7.9 g/dL (6.4-8.2)
[2024-05-04] MEDS: Omnipaque 350 MG/ML 100 ML BTL IJ (11:49)
[2024-05-04] MEDS: Normal Saline - Diluent 50 ML VIAL IJ (11:49)
[2024-05-04] MEDS: Ciprofloxacin 500 MG TAB 750 MG PO (13:21)
== END 2024-05-04 13:28 | disposition home or self-care (01) ==
PROVIDERS: Emergency Provider Emergency Medicine; PCP Pediatrics Adolescent Medicine
DX: N39.0 Urinary tract infection, site not specified (principal); B96.5 Pseudomonas (aeruginosa) (mallei) (pseudomallei) as the cause of diseases classified elsewhere; Z87.891 Personal history of nicotine dependence
CPT/HCPCS: 36415; 80053; 83690; 87040; 93005; 99284; 74177; 81003; 81015; 83735; 85025; J3490

== ENCOUNTER 2024-05-04 17:54 | Emergency (ER) | payer MEDICARE, MEDICAID, SELFPAY ==
[2024-05-04 18:05] VITALS: BP 147/84; PULSE 115; RESP 15; TEMP 36.8; O2SAT 98
--- NOTE | 2024-05-04 20:45 | RT.EKG_ITS ---
APPROVED REPORT Exam: Resting ECG Reason for Exam: chest pains Patient Location: E HR:112 bpm ECG Measurements Heart Rate 112 AXIS FL 134 P 33 QRSd 88 QRS 15 QT 343 T -26 QTc 469 Conclusion Sinus tachycardia...rate> 99
[2024-05-04 21:49] VITALS: BP 183/92; PULSE 115; RESP 21; TEMP 36.8; O2SAT 96
[2024-05-04 22:24] VITALS: BP 183/92; PULSE 115; RESP 21; O2SAT 96
== END 2024-05-05 00:12 | disposition left against medical advice (07) ==
PROVIDERS: Emergency Provider Emergency Medicine Emergency Medical Services; PCP Pediatrics Adolescent Medicine
DX: Z53.21 Procedure and treatment not carried out due to patient leaving prior to being seen by health care provider (principal)
CPT/HCPCS: 93005; 93010

== ENCOUNTER 2024-05-08 17:11 | Emergency (ER) | payer MEDICARE, MEDICAID, SELFPAY ==
[2024-05-08] VITALS (7 sets, daily range): BP systolic 124–161; BP diastolic 79–91; PULSE 81–122; RESP 14–20; TEMP 36.3–36.8; O2SAT 96–100
[2024-05-08] MEDS: Lactated Ringers 1,000 ML 1000 ML IV (17:49)
[2024-05-08 17:54] LABS: Abs Immature Grans 0.05 10^3/uL (0.0-0.06); Absolute Basophil Count 0.01 10^3/uL (0.0-0.2); Absolute Lymphocyte Count 2.29 10^3/uL (1.2-3.4); Absolute Monocyte Count 0.71 10^3/uL (0.1-0.8); Absolute Neutrophil Count 7.47 10^3/uL (1.2-6.7); Basophils % 0.1 %; HCT 41.3 % (36.0-46.0); HGB 13.4 g/dL (11.2-15.7); Immature Grans % 0.5 %; Lymphocytes % 21.7 %; MCHC 32.4 % (32.0-36.0); MCV 86 fL (80-95); MPV 10.6 fL (8.0-11.0); Monocytes % 6.7 %; Platelet Count 327 10^3/uL (130-400); RBC 4.79 10^6/uL (3.93-5.22); RDW-SD 40.6 fL; WBC 10.53 10^3/uL (4.4-10.8)
[2024-05-08 18:20] LABS: ALT 49 U/L (14-59); AST 19 U/L (15-37); Albumin 4.2 g/dL (3.4-5.0); Alkaline Phosphatase 88 U/L (46-116); Anion Gap 10.8 mmol/L (3-11); BUN 3 mg/dL (7-18); Bilirubin, Total 0.4 mg/dL (0.2-1.0); CO2 24.2 mmol/L (21.0-32.0); CREATININE 0.9 mg/dL (0.55-1.02); Calcium 9.3 mg/dL (8.5-10.1); Chloride 109 mmol/L (98-107); Estimated GFR 90.42 (mL/min/1.73m2); Glucose 111 mg/dL (74-106); Lipase 42 U/L (<78); Potassium 3.5 mmol/L (3.5-5.1); Sodium 144 mmol/L (136-145); Total Protein 7.7 g/dL (6.4-8.2)
[2024-05-08 18:37] LABS: Procalcitonin < 0.10 ng/mL
[2024-05-08 19:22] LABS: Bilirubin Negative (Negative); Blood Negative (Negative); Clarity Clear (Clear); Glucose Negative (Negative); Ketones Negative (Negative); Leukocyte Esterase Negative (Negative); Nitrite Negative (Negative); Specific Gravity >= 1.030 (1.005-1.025); Urobilinogen 0.2 mg/dL (Up to 0.2)
[2024-05-08 19:32] LABS: Bacteria Negative HPF (Negative); C & S Indicated? C&S Done As Ordered; Crystals Negative HPF (Negative); Epithelial Cells Many HPF (Negative); Mucus Trace (Negative); RBC Negative HPF (0-2); WBC 0-2 HPF (0-5)
--- NOTE | 2024-05-08 20:01 | ED.GENADUL_ITS ---
Discharge Plan Disposition Patient Disposition: Home Condition: Good Discharge Details Clinical Impression: Encounter for medical assessment Primary Care Provider: Oni Minaya ED Provider: Irvin Bedolla Home Meds and New Rx's Prescriptions: No Action ibuprofen 600 mg tablet 600 mg PO QID Qty: 30 0RF aripiprazole [Abilify] 15 MG tablet 15 mg PO DAILY olanzapine 10 mg Tablet 5 mg PO PRN PRN lithium carbonate 450 mg Tablet Extended Release 450 mg PO BID gabapentin 300 mg Tablet 600 mg PO DAILY zolpidem [Ambien] 5 mg Tablet 5 mg PO QHS PRN ergocalciferol (vitamin D2) [Vitamin D2] 1,250 mcg (50,000 unit) capsule 1,250 mcg PO DAILY oxybutynin chloride 5 mg tablet extended release 24hr 5 mg PO DAILY polyethylene glycol 3350 [Miralax] 17 gram/dose powder 17 g PO DAILY olanzapine 5 mg tablet 5 mg PO DAILY omeprazole 20 mg capsule,delayed release(DR/EC) 20 mg PO DAILY lithium carbonate 300 mg tablet extended release 300 mg PO DAILY clozapine 200 mg tablet 200 mg PO DAILY metformin 500 mg tablet extended release 24 hr 500 mg PO DAILY betamethasone dipropionate 0.05 % ointment 1 applic TOPICAL DAILY lorazepam 0.5 mg tablet 0.5 mg PO DAILY PRN ammonium lactate 12 % cream 1 applic topical DAILY ciprofloxacin HCl 500 mg tablet 500 mg PO DAILY Discharge Instructions Additional Instructions: At this time your workup is returned very reassuring. Your heart rate has improved with the fluids. You have no elevated white count or evidence of significant infection. Your electrolytes are normal. Your pancreas numbers are normal suggesting no pancreatitis. Additionally your urine shows no signs of urinary tract infection at this time. As we discussed together, we have sent cultures for your blood in urine. However there is a more likely chance that some of your symptoms may be secondary to an oncoming virus like your mother had. Please continue to take your antibiotic as prescribed. Please monitor your symptoms closely. If you notice any worsening of your symptoms, or any new symptoms such as vomiting, diarrhea, fever, chills, shortness of breath, chest pain, numbness, weakness, or fainting , please return immediately to the emergency department for reevaluation. Please follow up with your primary care provider as soon as possible for reassessment and reevaluation. As always, it was a pleasure participating in your medical care today. Referrals: Oni Minaya [Primary Care Provider] - [facility] General Date/Time Provider Initiated Documentation: 05/08/24 17:20 . [facility] Narrative: This is a 28-year-old female with a past medical history of schizoaffective disorder, frequent urinary tract infections, who presents today for evaluation of medical assessment. Patient was recently here 4 days ago, she was evaluated, urine cultures which had been ordered prior to that visit and come back positive for both Pseudomonas and ochrobacterium. She had been on a course of Macrobid, and then transition to cefpodoxime. After the patient was here 4 days ago [facility] infectious disease team recommended ciprofloxacin 750 twice daily for 10 days. Patient has been taking this, however she presents today because she has been feeling cold and slightly fatigued. Mother of the patient has recently come down with influenza, however the patient has no symptoms of runny nose, congestion, cough, aches, joint pain or arthralgias. Patient has no other complaints at this time otherwise. She states that she contacted her PCP and told her that she had been feeling slightly chilled and it was recommended that she come in for evaluation with her history of positive cultures. Related Data Home Medications ?Medication ?Instructions ?Recorded ?Confirmed aripiprazole 15 mg tablet (Abilify) 15 mg PO DAILY 10/17/16 05/08/24 gabapentin 300 mg tablet 600 mg PO DAILY 05/26/21 05/08/24 lithium carbonate 450 mg 450 mg PO BID 05/26/21 05/08/24 tablet,extended release olanzapine 10 mg tablet 5 mg PO PRN PRN 05/26/21 05/08/24 zolpidem 5 mg tablet (Ambien) 5 mg PO QHS PRN 08/15/21 05/08/24 ibuprofen 600 mg tablet 600 mg PO QID #30 tabs 11/24/22 05/08/24 ammonium lactate 12 % topical cream 1 applic topical DAILY 05/04/24 05/08/24 betamethasone dipropionate 0.05 % 1 applic topical DAILY 05/04/24 05/08/24 topical ointment clozapine 200 mg tablet 200 mg PO DAILY 05/04/24 05/08/24 ergocalciferol (vitamin D2) 1,250 1,250 mcg PO DAILY 05/04/24 05/08/24 mcg (50,000 unit) capsule (Vitamin D2) lithium carbonate 300 mg 300 mg PO DAILY 05/04/24 05/08/24 tablet,extended release lorazepam 0.5 mg tablet 0.5 mg PO DAILY PRN 05/04/24 05/08/24 metformin 500 mg tablet,extended 500 mg PO DAILY 05/04/24 05/08/24 release 24 hr olanzapine 5 mg tablet 5 mg PO DAILY 05/04/24 05/08/24 omeprazole 20 mg capsule,delayed 20 mg PO DAILY 05/04/24 05/08/24 release oxybutynin chloride 5 mg 5 mg PO DAILY 05/04/24 05/08/24 tablet,extended release 24 hr polyethylene glycol 3350 17 17 g PO DAILY 05/04/24 05/08/24 gram/dose oral powder (Miralax) ciprofloxacin HCl 500 mg tablet 500 mg PO DAILY 05/05/24 05/08/24 Previous Rx's ?Medication ?Instructions ?Recorded ibuprofen 600 mg tablet 600 mg PO QID #30 tabs 11/24/22 Allergies Allergy/AdvReac Type Severity Reaction Status Date / Time risperidone (From Risperdal) Allergy Intermediate Other (See Unverified 05/08/24 18:18 Comment) haloperidol (From Haldol) AdvReac Intermediate Other (See Unverified 05/08/24 18:18 Comment) quetiapine (From Seroquel) AdvReac Intermediate Other (See Unverified 05/08/24 18:18 Comment) General Stated Complaint: GenMedical LOY: 3 Exam Narrative Exam Narrative: 1.Const: Well-nourished, Well-developed, appearing stated age 2.Eyes: PERRL, no conjunctival injection, and symmetrical lids. 3.ENT: Atraumatic external nose and ears. Moist MM. Neck: Symmetric, trachea midline, No thyromegaly. 4.CVS: +S1/S2, Peripheral pulses 2+ and equal in all extremities. Brisk capillary refill in all extremities. 5.RESP: Unlabored respiratory effort. Clear to auscultation bilaterally. No wheezes rales or rhonchi 6.GI: Soft, Nontender/Nondistended, No hepatosplenomegaly. No guarding or rebound. 7.MSK: Normocephalic/Atraumatic, Extremities w/o deformity or ttp No cyanosis or clubbing, Normal movement of all extremities 8.Skin: Warm, Dry. No rashes or lesions. 9.Neuro: supervisor spinning II-XII grossly intact. Sensation grossly intact, no focal neurologic deficits. 10.Psych: (AAO) x3. Appropriate mood and affect Course Vital Signs Vital signs: Vital Signs Temperature 36.3 C L 05/08/24 17:13 Pulse 122 H 05/08/24 17:13 Respiratory Rate 18 05/08/24 17:13 Blood Pressure 161/84 H 05/08/24 17:13 Pulse Oximetry 96 05/08/24 17:13 Temperature 36.7 C 05/08/24 17:29 Pulse 101 H 05/08/24 18:21 Respiratory Rate 14 05/08/24 18:21 Blood Pressure 124/80 05/08/24 18:21 Pulse Oximetry 97 05/08/24 18:21 Oxygen Delivery Method Room Air 05/08/24 18:21 Oxygen Flow Rate 0 05/08/24 18:21 Lab/Test Results Lab/Test Results: 05/08/24 18:11 Urine - Voided Urine Culture - Pending 05/08/24 18:20 Blood Blood Culture - Pending 05/08/24 18:10 Blood Blood Culture - Pending Laboratory Tests Range/Units 05/08/24 05/08/24 17:44 18:11 WBC (4.4-10.8) 10^3/uL 10.53 RBC (3.93-5.22) 10^6/uL 4.79 Hgb (11.2-15.7) g/dL 13.4 Hct (36.0-46.0) % 41.3 MCV (80-95) fL 86 MCH (27.0-33.0) pg 28.0 MCHC (32.0-36.0) % 32.4 RDW (11.7-14.6) % 13.0 Plt Count (130-400) 10^3/uL 327 MPV (8.0-11.0) fL 10.6 Immature Gran % % 0.5 Neutrophils % % 71.0 Lymphocytes % % 21.7 Monocytes % % 6.7 Eosinophils % % 0.0 Basophils % % 0.1 Nucleated RBC % (0.0-0.3) % 0.0 Absolute Neutrophils (1.2-6.7) 10^3/uL 7.47 H Absolute Lymphocytes (1.2-3.4) 10^3/uL 2.29 Absolute Monocytes (0.1-0.8) 10^3/uL 0.71 Absolute Eosinophils (0.0-0.7) 10^3/uL 0.00 Absolute Basophils (0.0-0.2) 10^3/uL 0.01 Sodium (136-145) mmol/L 144 Potassium (3.5-5.1) mmol/L 3.5 Chloride (98-107) mmol/L 109 H Carbon Dioxide (21.0-32.0) mmol/L 24.2 Anion Gap (3-11) mmol/L 10.8 BUN (7-18) mg/dL 3 L Creatinine (0.55-1.02) mg/dL 0.9 Est GFR (CKD-EPI 2020) (mL/min/1.73m2) 90.42 Glucose (74-106) mg/dL 111 H Calcium (8.5-10.1) mg/dL 9.3 Total Bilirubin (0.2-1.0) mg/dL 0.4 AST (15-37) U/L 19 ALT (14-59) U/L 49 Alkaline Phosphatase (46-116) U/L 88 Total Protein (6.4-8.2) g/dL 7.7 Albumin (3.4-5.0) g/dL 4.2 Lipase (<78) U/L 42 Procalcitonin ng/mL < 0.10 Urine Color (Yellow) Yellow Urine Clarity (Clear) Clear Urine pH (5-8) 7.0 Ur Specific [place] (1.005-1.025) >= 1.030 H Urine Protein (Neg-Trace) mg/dL 30 H Urine Ketones (Negative) mg/dL Negative Urine Blood (Negative) Negative Urine Nitrite (Negative) Negative Urine Bilirubin (Negative) Negative Urine Urobilinogen (Up to 0.2) mg/dL 0.2 Ur Leukocyte Esterase (Negative) Negative Urine RBC (0-2) HPF Negative Urine WBC (0-5) HPF 0-2 Ur Epithelial Cells (Negative) HPF Many Urine Crystals (Negative) HPF Negative Urine Bacteria (Negative) HPF Negative Urine Mucus (Negative) Trace Ur Culture Indicated? C&S Done As Ordered Urine Glucose (Negative) mg/dL Negative Medical Decision Making This is a 28-year-old female with a past medical history of schizoaffective disorder, frequent urinary tract infections, who presents today for evaluation of medical assessment. Patient was recently here 4 days ago, she was evaluated, urine cultures which had been ordered prior to that visit and come back positive for both Pseudomonas and ochrobacterium. She had been on a course of Macrobid, and then transition to cefpodoxime. After the patient was here 4 days ago [facility] infectious disease team recommended ciprofloxacin 750 twice daily for 10 days. Patient has been taking this, however she presents today because she has been feeling cold and slightly fatigued. Mother of the patient has recently come down with influenza, however the patient has no symptoms of runny nose, congestion, cough, aches, joint pain or arthralgias. Patient has no other complaints at this time otherwise. She states that she contacted her PCP and told her that she had been feeling slightly chilled and it was recommended that she come in for evaluation with her history of positive cultures. Physical exam demonstrates well-appearing female, mild tachycardia in the 120s, hypertension, but no evidence of shock. No focal abnormal deficits on exam neurologically, no acute new abdominal pain. No other abnormalities. Uncertain if this represents continued bacterial infection versus acute viral infection however she has no symptoms that would suggest an acute viral component at this time of headache neck pain arthralgias or any runny nose congestion or sore throat. We will evaluate her urine to see if there is any evidence of change in her urinalysis, we will check for systemic signs of infection, monitor closely and reassess. 8018 p.m. Laboratory workup is returned, no white count bandemia or significant left sh ift. Electrolytes normal renal function normal, lipase normal, procalcitonin normal, urinalysis shows no significant WBCs nitrites or leuk esterase. She remains afebrile, after a liter of fluids her heart rate has normalized, blood pressure normal, she still remains afebrile. I see no evidence of systemic infection at this time. No evidence to suggest sepsis. She has no cough shortness of breath to suggest pneumonia. At this time I do feel that the patient is stable for discharge. Blood cultures and urine cultures were sent. She will be contacted if these return positive. Recommend continuation of her Cipro. Discussed red flags for which to return. Patient demonstrates notable hemodynamic stability at this time clinically and objectively. I have extensively reviewed the treatment plan and discharge instructions with the patient and their family. I have addressed all patient concerns at this time. The patient and family was made aware of what symptoms to monitor for that would warrant a return to the emergency department. Discussed the plan with the patient and family, they demonstrate verbal understanding and agreement with our assessment and plan at this time. The documentation in this chart was dictated using [employer] dictation software. Please excuse any dictation errors. Quality:SDOH Health Related Social Needs: No Data to Display PFSH All Active Problems (Updated 05/08/24 @ 20:03 by Irvin Bedolla DO) Encounter for medical assessment (Acute) Urinary tract infection due to Pseudomonas aeruginosa (Acute) Social History Smoking/Tobacco Use Status: Former Tobacco Use Smoking risk assessment performed?: Yes Alcohol Intake: current Alcohol Intake frequency: holidays/special occasions only Alcohol type: beer, wine and hard liquor Drug use: Never Substance use type: does not use Do you feel safe at home: Yes Do you feel safe in your relationship?: Yes
== END 2024-05-08 20:13 | disposition home or self-care (01) ==
PROVIDERS: Emergency Provider Student in an Organized Health Care Education/Training Program; PCP Pediatrics Adolescent Medicine
DX: R68.83 Chills (without fever) (principal); R53.83 Other fatigue; Z87.891 Personal history of nicotine dependence
CPT/HCPCS: 36415; 80053; 83690; 84145; 87040; 96361; 99284; 81003; 81015; 85025; 87086